=== PATIENT | male | born 1970 | race Asian ===

== ENCOUNTER 2024-07-20 21:10 | Emergency (ER) | payer OTHER ==
[~2024-07-20] VITALS: Ht 170.2 cm; Wt 100.0 kg
[2024-07-20 21:13] VITALS: O2SAT 99
[2024-07-20 21:23] VITALS: BP 130/92; PULSE 72; RESP 16; TEMP 98; O2SAT 100
[2024-07-20 21:57] LABS: CLARITY URINE TURBID (CLEAR); COLOR URINE YELLOW (YELLOW); GLUCOSE URINE NEGATIVE (NEGATIVE); KETONES URINE NEGATIVE (NEGATIVE); LEUKOCYTE ESTERASE URINE 3+ (NEGATIVE); NITRITE URINE NEGATIVE (NEGATIVE); OCCULT BLOOD URINE 1+ (NEGATIVE); PH URINE >=9.0 (4.5-8.0); PROTEIN URINE 2+ (NEGATIVE); SPECIFIC GRAVITY URINE 1.021 (1.005-1.030)
[2024-07-20] MEDS ORDERED: SULF1TAB48 MT (22:11)
[2024-07-20 22:27] LABS: WBC URINE TNTC /hpf (0-2)
[2024-07-20 22:31] LABS: BACTERIA URINE 1+; RBC URINE 0-2 /hpf (0-2); SQUAMOUS EPITHELIAL CELL URINE 1+ /lpf (RARE/1+)
== END 2024-07-20 22:34 | disposition home or self-care (01) ==
LOC: ER 21:10
DX: N39.0 Urinary tract infection, site not specified (principal)
CPT/HCPCS: 81003; 99283